=== PATIENT | female | born 1965 | race Caucasian/White ===

== ENCOUNTER → 2019-03-14 | Outpatient (CLI) | payer OTHER ==
--- NOTE | 2019-03-14 18:30 | REP ---
HISTORY: Trauma to the 3rd digit of the right hand. FINDINGS: No acute fracture or destructive osseous lesion. The DIP joint is in flexion. Electronically Signed by Jay Andrade DO 03/14/2019 07:15 P
== END ==
LOC: M LRY 17:38
PROVIDERS: ATTEND Nurse Practitioner Family
DX: S69.91XA Unspecified injury of right wrist, hand and finger(s), initial encounter (principal); W23.0XXA Caught, crushed, jammed, or pinched between moving objects, initial encounter; Y92.9 Unspecified place or not applicable

== ENCOUNTER → 2023-06-10 | Outpatient (CLI) | payer OTHER ==
[~2023-06-10] MED LIST: GASTROGRAFIN SOLUTION 30ML ONE; ISOVUE-370 76% 100ML VIAL ONE
== END ==
LOC: M PLAIMG 08:52
PROVIDERS: ATTEND Nurse Practitioner Adult Health
DX: R68.81 Early satiety (principal); R76.0 Raised antibody titer; R63.4 Abnormal weight loss
CPT/HCPCS: 74177; Q9963; Q9967

== ENCOUNTER → 2023-10-17 | Outpatient (CLI) | payer OTHER | LOC: M RAD 11:34 | PROVIDERS: ATTEND Nurse Practitioner Adult Health | DX: R76.0 Raised antibody titer (principal); R63.4 Abnormal weight loss; R68.81 Early satiety | CPT/HCPCS: 78012; A9516 ==

== ENCOUNTER 2023-12-22 08:54 | Day surgery (SDC) | payer OTHER ==
[~2023-12-22] VITALS: Ht 165.1 cm; Wt 75.2 kg
[~2023-12-22 08:54] MED LIST changes: -GASTROGRAFIN SOLUTION 30ML ONE; -ISOVUE-370 76% 100ML VIAL ONE; +NS 1,000 ML IV ONE
[2023-12-22] MEDS ORDERED: fentaNYL 100 MCG/2 ML INJECTION As Ordered ONE (08:55)
[2023-12-22] MEDS ORDERED: LIDOCAINE 2% 100MG/5ML SDV (FOR ANES.) As Ordered ONE (08:56)
[2023-12-22] MEDS ORDERED: propofoL 500 MG/50 ML VIAL As Ordered ONE (08:56)
[2023-12-22] MEDS ORDERED: GLYCOPYRROLATE INJ 0.2 MG/ML 2 ML VIAL As Ordered ONE (11:40)
[2023-12-22] MEDS ORDERED: PHENYLephrine 500MCG 5ML (100MCG/ML) SYRINGE As Ordered ONE (11:46)
[2023-12-22 12:26] VITALS: TEMP 97.4
[2023-12-22 12:51] VITALS: BP 131/75; O2SAT 98
== END 2023-12-22 12:53 | disposition home or self-care (01) ==
LOC: M OPP 08:54
PROVIDERS: ATTEND Internal Medicine Gastroenterology
DX: D12.5 Benign neoplasm of sigmoid colon (principal); D12.7 Benign neoplasm of rectosigmoid junction; C18.7 Malignant neoplasm of sigmoid colon; K29.70 Gastritis, unspecified, without bleeding; K28.9 Gastrojejunal ulcer, unspecified as acute or chronic, without hemorrhage or perforation; R19.4 Change in bowel habit; R63.4 Abnormal weight loss; K20.90 Esophagitis, unspecified without bleeding; K44.9 Diaphragmatic hernia without obstruction or gangrene; R10.13 Epigastric pain
CPT/HCPCS: 43239; 45380; 45381; 45385; 88305; J2371; J3010